=== PATIENT | female | born 1960 | race African-American/Black ===

== ENCOUNTER 2019-09-28 09:00 | Outpatient (RCR) | payer OTHER, SELFPAY ==
--- NOTE | 2019-08-30 14:27 | PTOPEVAL ---
PHYSICAL THERAPY EVALUATION AND PLAN OF CARE Thank you for referring Julienne Ponce to [facility]. I recommend Julienne participate in physical therapy 2x/week for 3-4 weeks. Please review, sign, date and return this plan of care SHELIA. I agree with and certify that the following plan of care is medically necessary. Referring Physician Date Evaluation Diagnosis right plantar fasciitis Onset 2 years Subjective Information Julienne is here toda with c/o Query Text:As Reported By Patient/ bilateral foot pain, right Family worst than left. States that she started to experience right heel pain and some pain at the bottom of the heel. 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 The left foot hurts more under the ball of the foot. Has been getting cortisone injections that help. She stretches the foot every day, uses shoe inserts, and has a boot she wears at night. Julienne states she can go 3-4 days without pain at all but then it will come back and throb. States that there are some mornings that she can barely walk and massaging the foot, using ice, and using an pawan wrap all help temporarily. Pain Assessment Timing of Pain Assessment Timing of Pain Assessment Assessment Pain Scale Pain Scale Used Numeric (1 - 10) Self Report Pain Assessment Right Foot/Feet Reported Pain Level 10 Pain Frequency Chronic,Intermittent Pain Score Pain Score 10: Self Report Lower Extremity Muscle Strength Testing Hip Strength Right Hip Flexion Strength 4 Good Hip Extension Strength 4 Good Hip Abduction Strength 4 Good Knee Strength Right Knee Flexion Strength 5 Normal Knee Extension Strength 5 Normal Ankle Strength Right Ankle Dorsiflexion Strength 5 Normal Ankle Eversion Strength 4 Good Ankle Inversion Strength 4 Good Ankle Strength Comments bilateral heel raises x20 - ankles invert during heel raises Muscle Length Testing Muscle Length Testing Kendall Test Shortened Muscles Short (R) Iliopsoas,Short (L) Iliopsoas,Short (R) Rectus Fem
--- NOTE | 2019-09-28 09:49 | PTOPEVAL ---
PHYSICAL THERAPY PROGRESS REPORT Thank you for referring Julienne Ponce to [facility] [place]. As below stated, Juleinne is demonstrating progress in strength and function, but continues to report significant pain numbers, especially after work. She reports that she does perform her home exercise program and states that she massages alot. Julienne stated she is going to return to follow-up with physician and would like to hold on therapy at this time. I will agree and recommend that we hold Julienne's chart at this time. If it is determined she requires further skilled PT, we will be happy to work with her again. Please review, sign, date and return this plan of care SHELIA. I agree with and certify that the following plan of care is medically necessary. Referring Physician Date Re-evaluation Diagnosis right plantar fasciitis Onset 2 years Subjective Information Reports that yesterday was not Query Text:As Reported By Patient/ a good day because it was her Family first day back to work. She used ice and heat to help with the pain. States she continues to have pain with first steps out of bed in the morning and that she stretches and massages the feet. Julienne also reports that after those first steps, the pain eases, but when she is on her feet more throughout the day the pain resumes. Pain Assessment Timing of Pain Assessment Timing of Pain Assessment Assessment Pain Scale Pain Scale Used Numeric (1 - 10) Self Report Pain Assessment Right Foot/Feet Reported Pain Level 2 Pain Frequency Chronic,Intermittent Pain Aggravating Factors Walking,Weight Bearing/ Standing Pain Score Pain Score 2: Self Report Hip Strength Right Hip Flexion Strength 4+ Good + Hip Extension Strength 4+ Good + Hip Abduction Strength 4+ Good + Knee Strength Right Knee Flexion Strength 5 Normal Knee Extension Strength 5 Normal Ankle Strength Right Ankle Dorsiflexion Strength 5 Normal Ankle Eversion Strength 5 Normal Ankle Inversion Strength 5 Normal Ankle Strength Comments unilateral heel raises x20 on right Kendall Test Shortened Muscles Short (R) Iliopsoas,Short (L) Iliopsoas,Short (R) Rectus Femoris,Short (L) Rectus Femoris Left Hamstring Length -25 Query Text:(90 - 90 Position) Right Hamstring Length -25 Query Text:(90 - 90 Position)
--- NOTE | 2019-11-24 08:22 | PCPTNOTE ---
PHYSICAL THERAPY DISCHARGE Patient:Julienne Ponce Date of :1960 Julienne was seen in physical therapy for plantar fasciitis. Her chart was held as she followed up with physician after 4 weeks of therapy. Patient has not contacted this clinic for further care or questions since 09/28/2019, therefore she will be discharged at this time. Patient?s initial visit was on 08/30/2019. The goals have not been met. Thank you for referring this patient to [facility]. Please review, sign, date and return this discharge summary SHELIA. I have been updated about the patient's current status and I agree with discharge from the above service at this time. Referring Physician Date
--- NOTE | 2020-06-21 15:50 | PCPTNOTE ---
07/05/19, patient received treatment of Ultrasound only. Billing charges should reflect 8 minutes of ultrasound treatment only.
--- NOTE | 2020-06-21 15:51 | PCPTNOTE ---
09/07/19, patient received treatment of Ultrasound only. Billing charges should reflect 8 minutes of ultrasound treatment only. Documentation under ultrasound should read: Patient laying in prone with ultrasound gel only for pulsed 1.0mgh at 1.0w/cm2 intensity for 8min to right foot to reduce pain and reduce soft tissue tightness/spasms.
== END 2019-11-25 14:10 | disposition home or self-care (01) ==
LOC: ANHPT 09:00
DX: M72.2 Plantar fascial fibromatosis (principal)
CPT/HCPCS: 97035; 97110; 97140; 97161

== ENCOUNTER 2020-03-21 16:49 | Outpatient (CLI) | payer OTHER, SELFPAY ==
--- NOTE | ~2020-03-21 | MM_ITS ---
EXAMINATION: MM screening [facility] BI w laura HISTORY: Screening mammogram TECHNIQUE: Craniocaudal and mediolateral oblique 3-D tomosynthesis images were obtained and synthetic 2-D images were generated. CAD analysis was submitted and interpreted. COMPARISON: 02/09/2019, 01/28/2018, 1717 BREAST PARENCHYMAL COMPOSITION: There are scattered areas of fibroglandular density. FINDINGS: Stable left breast masses are considered benign given the lack of interval change. There is no evidence of suspicious mass, calcification, or architectural distortion to suggest malignancy in either breast. There has been no suspicious interval change. IMPRESSION: 1. No mammographic evidence of malignancy. 2. Recommend routine screening mammography in one year. BI-RADS Category 2: Benign finding(s). Reviewed, dictated and finalized at location A. ERY SHOPPER
== END 2020-03-21 16:50 | disposition home or self-care (01) ==
LOC: ANHIMG 16:53
PROVIDERS: PCP Nurse Practitioner Family; Visit Provider Nurse Practitioner Family
DX: Z12.31 Encounter for screening mammogram for malignant neoplasm of breast (principal)
CPT/HCPCS: 77063; 77067